=== PATIENT | male | born 1945 | race Caucasian/White ===

== ENCOUNTER → 2016-07-03 | Day surgery (SDC) | payer MEDICARE, OTHER ==
[~2016-07-03] VITALS: Ht 185.4 cm; Wt 134.2 kg
[~2016-07-03] MED LIST: ASPIRIN325 MG PO; AVODART0.5 MG PO; BENADRYL25 MG PO; DIOVAN320 MG PO; FLOMAX0.4 MG PO; GLUCOPHAGE850 MG PO; GLUCOSAMINE CH1 EAC3 PO; LEVOTHYROXINE50 MCG PO; LIPITOR80 MG PO; LOPRESSOR50 MG PO; NOVOLIN N100 UNIT/1 SUB-Q; NOVOLIN R100 UNIT/1 SUB-Q; NUCYNTA50 MG PO; VITAMIN B-122500 MCG PO; ZOCOR80 MG PO; ZYLOPRIM300 MG PO
--- NOTE | ~2016-07-03 | OR ---
PATIENT'S NAME: HAZEL GUY [facility] AGE: 71 Y [address] ROOM: [place] [address] LOCATION: [facility] [place] ADMIT DATE: 07/03/2016 OR/Procedure Report DISCHARGE DATE: FAMILY PHYSICIAN: Maximo Aguayo MD ATTENDING PHYSICIAN: Jose Solomon SURGEON: Jose Solomon MD AUTOMOBILE PAINTER: DATE OF PROCEDURE: 07/03/2016 PREOPERATIVE DIAGNOSES: 1. Gross hematuria. 2. Extensive bladder calcifications. 3. Urinary retention. 4. Massive left hydronephrosis with probable left distal ureteral calculus. POSTOPERATIVE DIAGNOSES: 1. Gross hematuria. 2. Extensive bladder calcifications. 3. Urinary retention. 4. Massive left hydronephrosis with probable left distal ureteral calculus. PROCEDURES PERFORMED: 1. Cystoscopy and retrograde. 2. Extensive litholapaxy. 3. Left ureteral stent placement. ANESTHESIA: General. INDICATION: This is a 71-year-old gentleman who had presented with gross hematuria. CT scan revealed multiple calcifications in the bladder. He was quite distended. The stones did not all layer at the base of the bladder. I had some concerns he may have a calcified bladder tumor. He also has massive left hydronephrosis. He has chronic renal insufficiency. Some of that may be obstructive in nature. He also has insulin-dependent diabetes. He presents at this time for further evaluation and intervention. DESCRIPTION OF PROCEDURE: Having obtained his informed consent, the patient was taken to the operating room. He was prepped and draped sterilely and in lithotomy position. General anesthesia was administered. A 21-Omani cystoscope was assembled and guided into the urethra. The course of the urethra was unremarkable back to the prostate. He has a high middle lobe. We have to look way up and over it. It obscures the orifices a bit. What we find is a chronically distended bladder with cellule and diverticula formation. All those stones that we saw are not related to a calcified mass. They were sitting in various pockets in the bladder. He has 2 to 3 dominant PATIENT'S NAME: HAZEL GUY [facility] AGE: 71 Y [address] ROOM: [place] [address] LOCATION: [facility] [place] ADMIT DATE: 07/03/2016 OR/Procedure Report DISCHARGE DATE: FAMILY PHYSICIAN: Maximo Aguayo MD ATTENDING PHYSICIAN: Jose Solomon stones and a multitude of 2 to 4 mm stones. Bladder examination was confirmed with 70-degree lens. Under fluoroscopy, the bowel gas pattern and soft tissue outlines were unremarkable. The calcifications are difficult to appreciate. Some of that may be related to his morbid obesity. They may also be poorly calcified. Contrast was instilled on the right side. The ureter J hooks from his prostatic hypertrophy. Otherwise, there are no filling defects. The ureter was narrow. The calyces were finely cupped. There was no mass effect. The left side was a different story. He is massively dilated to the distal ureter. I cannot get much contrast up. I then began working with the wire. He appears to have obstruction there consistent with a probable distal stone. I suspect he has been chronically obstructed. Once we get an angled guidewire up, I can get more contrast in the system. He has a very serpiginous and tortuous ureter. He is massively dilated all the way up into the collecting system. Getting a wire all the way to the top is aided with an open-ended catheter over the wire. We did some manipulation to get some of the tortuosity to straighten up. Ultimately, I did get the wire into the collecting system and I passed a 6 x 30 double-J stent over that guidewire. We will leave that to drainage and allow for some passive dilation at the area of the obstruction. We could then see if it is something that we can attack ureteroscopically. Obviously, if the kidney does not appear to drain well, we may leave it alone or remove that left-sided unit. With the stent in position, I then used the CyberWand and completely pulverized and evacuated all of the multitude of stones. At the conclusion, we have him stone free. My plan is to leave a catheter to drainage. We will get a followup ultrasound. We will then make a decision on how to address the left hydronephrosis. He may need urodynamic testing. I suspect he may need to consider a self-intermittent catheterization. I am also going to start him on dutasteride for the hypertrophy component to his chronic retention. Again, there may be a neurogenic component from his insulin dependent diabetes. A 20-Omani Larkin catheter was placed. The output is clear. The patient tolerated the procedure well. Blood loss was negligible. No specimens were sent. The patient returned to the recovery in awake and stable condition. JOSE SOLOMON MD PATIENT'S NAME: HAZEL GUY [facility] AGE: 71 Y [address] ROOM: [place] [address] LOCATION: [facility] [place] ADMIT DATE: 07/03/2016 OR/Procedure Report DISCHARGE DATE: FAMILY PHYSICIAN: Maximo Aguayo MD ATTENDING PHYSICIAN: Jose Solomon [facility]/modl /[id number] CC: Maximo Aguayo MD d: 07/03/16 2203 t: 07/04/16 0951, OPERATIVE SUMMARY
== END | disposition disaster alternative care site (69) ==
LOC: GPOC 06-28 08:00 → GSDC 10:57
PROC: 0TCB8ZZ Extirpation of Matter from Bladder, Via Natural or Artificial Opening Endoscopic (ICD-10-PCS; principal; 2016-07-03)
PROC: 0T778DZ Dilation of Left Ureter with Intraluminal Device, Via Natural or Artificial Opening Endoscopic (ICD-10-PCS; 2016-07-03)
DX: N21.0 Calculus in bladder (principal); N13.30 Unspecified hydronephrosis; N32.89 Other specified disorders of bladder; R33.9 Retention of urine, unspecified; I25.10 Atherosclerotic heart disease of native coronary artery without angina pectoris; I48.91 Unspecified atrial fibrillation; I10 Essential (primary) hypertension; E78.5 Hyperlipidemia, unspecified; E03.9 Hypothyroidism, unspecified; E10.9 Type 1 diabetes mellitus without complications; M19.90 Unspecified osteoarthritis, unspecified site; Z88.0 Allergy status to penicillin; Z88.8 Allergy status to other drugs, medicaments and biological substances; Z79.84 Long term (current) use of oral hypoglycemic drugs; Z79.82 Long term (current) use of aspirin; Z79.899 Other long term (current) drug therapy
CPT/HCPCS: C1769; C2617; J1956; J2001; J2405; J7030

== ENCOUNTER → 2016-07-31 | Outpatient (CLI) | payer MEDICARE, OTHER | END | disposition disaster alternative care site (69) | LOC: GRAD 08:13 | DX: R31.0 Gross hematuria (principal); N13.30 Unspecified hydronephrosis ==

== ENCOUNTER → 2016-08-14 | Outpatient (CLI) | payer MEDICARE, OTHER | END | disposition disaster alternative care site (69) | LOC: GRAD 08:32 | DX: N13.30 Unspecified hydronephrosis (principal); N13.4 Hydroureter ==

== ENCOUNTER → 2016-08-16 | Day surgery (SDC) | payer MEDICARE, OTHER ==
[~2016-08-16] VITALS: Ht 185.4 cm; Wt 131.0 kg
--- NOTE | ~2016-08-16 | OR ---
PATIENT'S NAME: HAZEL GUY [facility] AGE: 71 Y [address] ROOM: [place] [address] [place] [facility] [place] DATE: 08/16/2016 OR/Procedure Report DISCHARGE DATE: FAMILY PHYSICIAN: Maximo Aguayo MD ATTENDING PHYSICIAN: Jose Solomon SURGEON: Jose Solomon MD LOAN OPERATIONS SPECIALIST: DATE OF PROCEDURE: 08/16/2016 PREOPERATIVE DIAGNOSES: 1. Massive left hydronephrosis. 2. Marked benign prostatic hypertrophy with retention and bladder stone formation. 3. Urinary retention. 4. History of gross hematuria. 5. Chronic renal insufficiency - multifactorial. POSTOPERATIVE DIAGNOSES: 1. Massive left hydronephrosis. 2. Marked benign prostatic hypertrophy with retention and bladder stone formation. 3. Urinary retention. 4. History of gross hematuria. 5. Chronic renal insufficiency - multifactorial. 6. Large left distal ureteral calculus. PROCEDURES PERFORMED: 1. Cystoscopy and retrograde. 2. Left ureteroscopy with laser lithotripsy and multiple extractions. 3. Left ureteral stent placement. ANESTHESIA: General. INDICATIONS: This is a 71-year-old gentleman who had presented in June of this year with the above-noted findings. He had initially undergone cystoscopy and retrograde with removal of his bladder stones and left stent placement. He did well from a symptomatic standpoint. He has not had any further hematuria. He was started on a 3-vxcjp-csdiyehnf inhibitor in the form of dutasteride. He is still retaining significantly. Residual this week was 982 mL. He was initially left to catheter drainage with a stent indwelling. Followup ultrasound revealed an unremarkable right side. The left side revealed mild residual hydronephrosis, but there was obviously a reservoir effect. He was seen back recently with a followup ultrasound. The left hydronephrosis was progressive without the stent. It was felt to be worse after his interim study. He presents at this time for further PATIENT'S NAME: HAZEL GUY [facility] AGE: 71 Y [address] ROOM: [place] [address] [place] [facility] [place] DATE: 08/16/2016 OR/Procedure Report DISCHARGE DATE: FAMILY PHYSICIAN: Maximo Aguayo MD ATTENDING PHYSICIAN: Jose Solomon evaluation of the left distal ureteral obstruction. I would note that he had a CT scan. There was no obvious ureteral stone, but his bladder was enlarged and full of stones, and it was difficult to comment as to whether any of the stones were within the bladder or in the left ureter. We had removed all the bladder stones. No obvious stone was identified on the followup ultrasound. DESCRIPTION OF PROCEDURE: Having obtained his informed consent, the patient was taken to the operating room. He was prepped and draped sterilely and in lithotomy position. General anesthesia was administered. A 21-Taiwanese cystoscope was assembled and guided into the urethra. The course of the urethra was unremarkable back to prostatic urethra which is elongated and obstructed by trilobar hypertrophy. Moving into the bladder, we had much better visualization having gotten the stones and stent out. The bladder is capacious, but there were no mucosal lesions. He does have some small residual bladder calcifications after the extensive litholapaxy. Bladder examination was confirmed with a 70-degree lens. Under preliminary survey, bowel gas pattern and soft tissue outlines were unremarkable. Contrast was instilled on the right side. He has marked J- hooking from his prostatic hypertrophy, but there is no significant dilation nor is there any evidence of obstruction or filling defect. Contrast was injected on the left side. He has a massively dilated ureter right down to the bladder. No obvious stones or filling defects were appreciated. However, it is difficult to get enough volume in the collecting system to adequately outline it. My working assumption is that this is a chronic and unilateral hydroureteronephrosis. If that were from obstruction, we would anticipate seeing it bilaterally. He has not had any pain or symptoms relative to it. He does have the chronic renal insufficiency, but it is multifactorial with his vascular disease, insulin-dependent diabetes, etc. To complete the evaluation, I proceeded with cystoscopy. I passed a guidewire up the left side. I followed that with a semi-rigid scope. We find the issue. He has an approximately 1 cm stone in the markedly dilated distal ureter. It is too large to safely remove without breaking it up. A 600 micron laser fiber was prepared and passed. At a maximum setting of 800 mJ and 6 hertz, I completely fragmented the stone. The larger pieces were then extracted individually with a basket. Those were PATIENT'S NAME: HAZEL GUY [facility] AGE: 71 Y [address] ROOM: [place], [place] [address] [place] [facility] [place] DATE: 08/16/2016 OR/Procedure Report DISCHARGE DATE: FAMILY PHYSICIAN: Maximo Aguayo MD ATTENDING PHYSICIAN: Jose Solomon sent for analysis. With the marked dilation and diminished peristalsis, with the residual fragments and dust and the massive dilation, I opted to replace his stent. My safety wire was back loaded into the cystoscope. Over that, I passed a 6 x 30 contour stent. We have a nice level of placement cystoscopically and fluoroscopically. The patient tolerated the procedure well. Blood loss was negligible. The extracted fragments were sent for specimen and stone analysis. The patient was returned to the recovery area, awake and in stable condition. JOSE SOLOMON MD [facility]/modl /[id number] CC: Maximo Aguayo MD d: 08/16/16 2118 t: 08/25/16 1520, OPERATIVE SUMMARY
--- NOTE | ~2016-08-16 | HP ---
PATIENT'S NAME: BREEZY GUY [facility] AGE: 71 Y [address] ROOM: [place] [address] LOCATION: [facility] [place] ADMIT DATE: 08/16/2016 History & Physical DISCHARGE DATE: FAMILY PHYSICIAN: Maximo Aguayo MD ATTENDING PHYSICIAN: Jose Solomon DATE OF SERVICE: CHIEF COMPLAINT: Left hydronephrosis. HISTORY OF PRESENT ILLNESS: This is a 71-year-old gentleman evaluated approximately 6 weeks ago with gross hematuria, bladder stones, urinary retention, and massive left hydronephrosis. He underwent cystoscopy with retrograde and left stent placement in addition to extensive litholapaxy. He has done well in the interim. In fact, he tells me he feels well. We had removed his stent on July 31, 2016. He has some renal insufficiency, but his function has remained stable. However, his left hydronephrosis persists, and we do not have an absolute etiology at this point. He has known retention. In fact, his residual at the office on 08/14/2016 was 982 mL. He is asymptomatic with that. His retention may be a contributor, but his right kidney is felt to be normal. He had an ultrasound on 07/31/2016 which demonstrated mild hydronephrosis after his stenting. He had a followup ultrasound yesterday. The preliminary report was that it had not changed significantly. However, on the official report, Dr. Carcamo noted "moderate hydronephrosis today, has worsened since the prior study." The ureters dilated down to the bladder. He had a prior CT scan. There was no obvious obstructing stone. He presents at this time for cystoscopy with retrogrades and possible left ureteroscopy. Otherwise, he has been feeling quite well. In spite of his residuals, he feels like he is voiding better. He is now on 4-dvamx-jdrnpexiv inhibitor in the form of dutasteride. Interestingly, he also tells me his insulin requirements have decreased significantly since our intervention. PAST MEDICAL HISTORY: In addition to the above, he has morbid obesity. He is 6 feet 1 inch and weighing in at 288 pounds, that is down from 311 pounds earlier this year. That may be responsible for some of his improved sugar control. He has a history of coronary artery disease and is status post stent. He is hypothyroid, hypertensive, insulin-dependent diabetic, and he has a history of atrial fibrillation. In addition to the above, he has had bilateral hernia repairs as well as orthopedic procedures and his cardiac intervention. PATIENT'S NAME: BREEZY GUY [facility] AGE: 71 Y [address] ROOM: [place] [address] LOCATION: [facility] [place] ADMIT DATE: 08/16/2016 History & Physical DISCHARGE DATE: FAMILY PHYSICIAN: Maximo Aguayo MD ATTENDING PHYSICIAN: Jose Solomon MEDICATIONS: 1. Zocor. 2. Zinc. 3. Synthroid. 4. Metoprolol. 5. Metformin. 6. Glucosamine. 7. Benadryl at h.s. 8. Valsartan. 9. Novolin insulin. 10. Efudex cream. 11. Sildenafil p.r.n. 12. Aspirin. 13. Dutasteride. 14. He has been on Keflex. ALLERGIES: HE HAS MULTIPLE LISTED ALLERGIES INCLUDING DEMEROL, CODEINE, PENICILLIN, HYDROCODONE, MORPHINE, DILAUDID, CHICKEN, AND EGGS. HE ALSO LISTS AN ALLERGY TO ANESTHESIA. BY HISTORY, HE HAS HAD PRIOR ANESTHESIA WHERE IT HAS TAKEN HIM A LONG TIME TO COME AROUND. SOCIAL HISTORY: He continues to work for the [employer]. He has a significant other. He also has a son who accompanies him. He has good family support. He does not drink or smoke. REVIEW OF SYSTEMS: He has no significant pertinent positives on full review. FAMILY HISTORY: Noncontributory. PHYSICAL EXAMINATION: GENERAL: Breezy appears his usual self. VITAL SIGNS: Blood pressure 154/79 with pulse of 66. He is 6 feet 1 inch and 288 pounds. HEART: Currently, regular. LUNGS: Clear. ABDOMEN: Remarkable for obesity. GENITOURINARY: Repeated at cystoscopy. EXTREMITIES: No clubbing, cyanosis, or edema. IMPRESSION: PATIENT'S NAME: BREEZY GUY [facility] AGE: 71 Y [address] ROOM: [place] [address] LOCATION: [facility] [place] ADMIT DATE: 08/16/2016 History & Physical DISCHARGE DATE: FAMILY PHYSICIAN: Maximo Aguayo MD ATTENDING PHYSICIAN: Jose Solomon 1. Persistent left hydronephrosis of uncertain etiology. 2. Gross hematuria with bladder stones-resolved. 3. Marked benign prostatic hypertrophy, now on 7-sbjic-sdvtmjqqk therapy. 4. Chronic renal insufficiency-multifactorial. 5. Urinary retention. 6. Coronary artery disease. 7. Insulin-dependent diabetes. PLAN: Cystoscopy with retrograde and probable left ureteroscopy with possible stent replacement. The patient understands the plan as well as the attendant risks and benefits. He has had his questions answered, and he wishes to proceed. JOSE SOLOMON MD [facility]/modl /[id number] CC: Maximo Aguayo MD D: [id number] T: [id number] HISTORY & PHYSICAL
[2016-08-16 07:01] LABS: BASOPHIL % 0.4 %; EOSINOPHIL # 0.1 K/uL (0.0-0.5); HEMATOCRIT 36.9 % (37.0-53.0); HEMOGLOBIN 11.8 g/dL (11.0-16.0); IMMATURE GRANULOCYTE % 0.4 %; LYMPHOCYTE # 1.3 K/uL (0.8-4.0); LYMPHOCYTE % 23.5 %; MCH 27.6 pg (27.0-34.0); MCV 86.2 fl (83.0-98.0); MONOCYTE # 0.5 K/uL (0.0-1.0); MONOCYTE % 8.5 %; NEUTROPHIL # (ANC) 3.5 K/uL (1.4-9.0); NEUTROPHIL % 65.2 %; NRBC % 0 /100WBC (0-0.00); PLATELET COUNT 165 K/uL (150-450); RBC 4.28 M/uL (3.50-5.50); RDW-CV 15.1 % (11.9-14.6); WBC 5.4 K/uL (4.0-11.0)
[2016-08-16 07:18] LABS: ALBUMIN 3.6 gm/dL (3.5-5.0); ANION GAP 10.5 (10.0-19.0); CALCIUM 8.4 mg/dL (8.5-10.5); CREATININE 1.3 mg/dL (0.6-1.3); POTASSIUM 4.5 mMol/L (3.7-5.1); TOTAL BILIRUBIN 0.5 mg/dL (0.0-1.5)
== END | disposition disaster alternative care site (69) ==
LOC: GPOC 08-15 13:00 → GSDC 06:12
PROVIDERS: Urology
PROC: 0TF78ZZ Fragmentation in Left Ureter, Via Natural or Artificial Opening Endoscopic (ICD-10-PCS; principal; 2016-08-16)
PROC: 0T778DZ Dilation of Left Ureter with Intraluminal Device, Via Natural or Artificial Opening Endoscopic (ICD-10-PCS; 2016-08-16)
DX: N13.2 Hydronephrosis with renal and ureteral calculous obstruction (principal); N40.1 Benign prostatic hyperplasia with lower urinary tract symptoms; R33.8 Other retention of urine; N18.9 Chronic kidney disease, unspecified; I25.10 Atherosclerotic heart disease of native coronary artery without angina pectoris; I48.91 Unspecified atrial fibrillation; E10.9 Type 1 diabetes mellitus without complications; E66.01 Morbid (severe) obesity due to excess calories; Z88.0 Allergy status to penicillin; Z88.8 Allergy status to other drugs, medicaments and biological substances
CPT/HCPCS: C1769; C2617; J1956; J7030

== ENCOUNTER 2016-11-16 13:19 | Inpatient (IN) | payer MEDICARE, OTHER ==
[~2016-11-16] VITALS: Ht 185.4 cm; Wt 133.4 kg
--- NOTE | ~2016-11-16 | DS ---
PATIENT'S NAME: HAZEL GUY [facility] AGE: 71 Y [address] ROOM: [id number] [place] [address] LOCATION: [facility] ADMIT DATE: 11/16/2016 Discharge Summary DISCHARGE DATE: 11/17/2016 FAMILY PHYSICIAN: Maximo Aguayo MD ATTENDING PHYSICIAN: Yumiko Martinez ADMITTING DIAGNOSIS: Cerebrovascular accident. DISCHARGE DIAGNOSIS: Cerebrovascular accident. SECONDARY DIAGNOSES: 1. Hypertension. 2. Diabetes mellitus type 2. 3. History of coronary artery disease. 4. Obesity. PROCEDURES: MRI brain, echocardiogram, CTA of neck and head. CONSULTATION: Neurology. 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 The patient was initially seen in the emergency department. Initial CT head was negative. The patient was admitted for TIA workup. HOSPITAL COURSE: The patient was admitted. His neurological examination was intact. His upper extremity weakness resolved. MRI of the brain shows small area of acute white matter ischemia at the left parietal lobe measuring up to [address] angio shows mild tubular stenosis involving the proximal left ICA measuring up to approximately 40%. The patient was admitted. His simvastatin was changed to Lipitor. The patient was also seen by Neurology during his stay. His neurological examination was intact and was back to normal. No signs of weakness. The patient's echocardiogram was unremarkable. Echocardiogram was done with bubble study. During his stay, he was placed on tele monitor, in tele monitor it was normal sinus rhythm. The patient during stay was able to walk around the hospital with no difficulty or ataxia and his neurological examination was back to normal. The patient was discharged in stable condition to home. CONDITION: Stable. DISPOSITION: Home. PATIENT'S NAME: HAZEL GUY [facility] AGE: 71 Y [address] ROOM: [id number] [place], [place] [address] LOCATION: [facility] ADMIT DATE: 11/16/2016 Discharge Summary DISCHARGE DATE: 11/17/2016 FAMILY PHYSICIAN: Maximo Aguayo MD ATTENDING PHYSICIAN: Yumiko Martinez DISCHARGE MEDICATION: Please see MAR. DISCHARGE INSTRUCTION: The patient have weakness, sensory change and vision change to report to the next emergency department. FOLLOWUP: To follow up with primary care physician in 1 week. Greater than 30 minutes was spent on discharge planning. MD BRIT TAYLOR/iona /[id number] d: 11/17/16 2333 t: 11/27/16 1059, DISCHARGE SUMMARY
--- NOTE | ~2016-11-16 | CON ---
PATIENT'S NAME: HAZEL ESTEBAN [facility] AGE: 71 Y [address] ROOM: [id number] [address] LOCATION: GICU ADMIT DATE: 11/16/2016 Consultation DISCHARGE DATE: FAMILY PHYSICIAN: Maximo Aguayo MD ATTENDING PHYSICIAN: JUNIOR SCOTT DATE OF CONSULTATION: 11/16/2016 The patient was seen on neurologic consultation at 10:40 p.m. on 11/16/2016. HISTORY OF PRESENT ILLNESS: Mr. Esteban is a delightful 71-year-old male patient, who has a history of diabetes, insulin dependent, and also a history of hypertension. He says that he was in his usual state of health and he was showing a house that he was working on when suddenly he developed full right arm weakness. This was not relegated to his hand and was not associated with any pain in the arm or in the neck. Just around that time, he also developed a visual phenomenon in his right eye which he said caused him to see an arc-like phenomena around the middle portion of his right eye as well as scintillating type of flashing in the right eye. He absolutely denied any scotoma or any other loss of vision in the right eye such as a curtaining effect. He had no neck pain at that time and no neck injury. The patient did come to our emergency room at that time. By the time, he had arrived here, he was assessed by the NIH stroke scale and there was really no weakness of the right upper extremity. It did completely resolve. The patient denies that he was putting pressure on the arm, leaning on it, and falling asleep on his own. Power is completely back to his baseline, and there is absolutely no pronator drift or any focal weakness that was seen in emergency room nor this evening. The patient denied any headaches at all during the day. Again, a CAT scan of the brain was performed and showed no evidence of any acute stroke. However, an MRI was performed later in the day and showed a very small little area on diffusion- weighted imaging, the left parietal region may or may not be associated with a stroke. This was a very faded area on DWI, representing something in the distant past. The patient at no time had any slurring of speech, facial droop, or any weakness or numbness to his arm or leg. He was like he was doing fine. He denies any sweatiness or lightheadedness at any time. His vital signs remained stable. PAST MEDICAL HISTORY: He has a history of diabetes, hypertension, and orthopedics surgeries in the bilateral knees that had to be done without anesthesia as he has extensive amounts of allergic reactions to medications including anesthetics. He does have a history of hypercholesterolemia. He has a history of obesity. He is on oral medications for his diabetes, including metformin as well as a long- acting normal insulin. He takes regularly scheduled regular dosing insulin PATIENT'S NAME: HAZEL ESTEBAN [facility] AGE: 71 Y [address] [id number] [address] LOCATION: [facility] ADMIT DATE: 11/16/2016 Consultation DISCHARGE DATE: FAMILY PHYSICIAN: Maximo Aguayo MD ATTENDING PHYSICIAN: JUNIOR SCOTT that is fixed at the times of his meals. During the evenings, he reports a few times that he becomes hypoglycemic with blood sugars going into the 50s if not 30s at some points in time. He says he knows when his blood sugar goes down, but this is not associated with any blood sugar drop today. Also, history of hypothyroidism and history of chronic back pain. Also, history of varicose veins with lower extremity vein stripping to relieve osteoarthritis. PAST SURGICAL HISTORY: Included cardiac stents and varicose vein stripping, hernia repair inguinal, and left elbow bursa surgery. MEDICATIONS: Home medications include: 1. Zocor 80 mg half a tablet daily. 2. Zinc gluconate 50 mg twice a day. 3. Synthroid 50 mcg daily. 4. Potassium gluconate 595 mg twice a day. 5. Metoprolol 50 mg twice a day. 6. Metformin 850 mg 3 times a day. 7. Valsartan 320 mg daily. 8. Novolin-R 30 units in the a.m., 20 units in the p.m., 12 units at noon. In fact, noted that this is taken with meals, but the patient says that these are taken with meals. 9. Myrbetriq 25 mg as needed. 10. Viagra 100 mg as needed. 11. Aspirin 325 mg tablets two tablets twice a day which he uses for back pain. 12. Novolin-N 50 units q.a.m. and 20 units q.p.m. SOCIAL HISTORY: He is engaged. Apparently, his prior 2 years ago. He is from [place], and he is currently building a house with his fiancee and to be soon. He denies any alcohol use or tobacco use or illicit drug use. 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 FAMILY HISTORY: Noncontributory. REVIEW OF SYSTEMS: The patient presented with a positive phenomena with a visual obscuration, but not loss of vision in the right eye. He says it was relegated only to his right eye. This happened in the setting of a sudden onset of right arm weakness that he said he could not elevate his arm and his forearm and hand. There was absolutely no weakness of his legs. No sensory numbness of his PATIENT'S NAME: HAZEL ESTEBAN [facility] AGE: 71 Y [address] ROOM: [place] [address] LOCATION: [facility] ADMIT DATE: 11/16/2016 Consultation DISCHARGE DATE: FAMILY PHYSICIAN: Maximo Aguayo MD ATTENDING PHYSICIAN: JUNIOR SCOTT right side. He denies any slurring of speech. He denied any facial droop or any other neurologic symptoms. These symptoms resolved upon the patient arriving at the emergency room. Here, the NIH stroke scale was rated as zero as the patient would not have been a candidate for tPA. PHYSICAL EXAMINATION: VITAL SIGNS: Showed a pulse of 77 and regular, respirations 18, blood pressure 160/79, temperature 97.3. NEUROLOGIC: Cranial nerves 2 through 12 were intact. His motor exam was normal with 5/5 power in the upper and lower extremities proximally and distally. Rapid alternating hand movement was completely intact. There was absolutely no pronator drift. There was no difference between the right and left arm on [id number] and rapid fine motor movements. His lower extremity power was also 5/5 and normal bulk and tone. His gait was normal and narrow based. Negative Romberg. Reflexes were symmetric at +2 in the upper and lower extremities with plantar reflexes downgoing. Sensory exam was completely intact. IMPRESSION: The patient had an odd presentation of sudden onset of right arm weakness in the setting of some odd visual phenomena in the right eye. It is unclear if it was relegated to the right eye only, but other phenomena does suggest a visual aura as opposed to loss of vision which would be associated in certain situations such as amaurosis fugax. I simply cannot connect the right eye process to the right arm weakness. These are unrelated to the brain as far as I could see. It is quite rare, but persons can have a visual aura with hemiplegic migraine without even a headache and without even a history of this. He denies any history of sudden weakness as often this would be seen at some time younger in life. The MRI finding of a very small 5 mm diffusion- weighted signal is obscured to me. It is in the parietal region and really would not be associated with a motor weakness of the right arm. I do not think that it would be associated at all with visual obscuration in that location either. The connection to the MRI finding, again which is a bit subtle and maybe something unrelated, the patient's symptoms today are unclear. We will monitor the patient closely overnight for any evidence of atrial fibrillation, but it is certainly odd that if a finding on MRI was present that he would have a complete recovery of his power in the right upper extremity. I would assume that he would have some subtle weakness even in the slightest, but he does not have that presently. Thus, a hemiplegic migraine is certainly not out of the question, especially with the visual aura type of presentation that he seems to describe. We will follow along on the patient's carotid study. We would necessarily change his cholesterol medication. He seems to be well controlled with his cholesterol profile. Hemoglobin A1c was 8.2, which could be better, but the patient does say that this is much improved from his past history. Continue to follow along with the Hospitalist PATIENT'S NAME: HAZEL ESTEBAN [facility] AGE: 71 Y [address] [id number] [address] LOCATION: [facility] ADMIT DATE: 11/16/2016 Consultation DISCHARGE DATE: FAMILY PHYSICIAN: Maximo Aguayo MD ATTENDING PHYSICIAN: JUNIOR SCOTT Service on Mr. Esteban's neurologic status. MD MAYELA GUTIÉRREZ/modl /[id number] d: 11/17/16 0034 t: 12/19/16 1529, CONSULTATION REPORT
--- NOTE | ~2016-11-16 | ER ---
PATIENT'S NAME: HAZEL GUY [facility] AGE: 71 Y [address] ROOM: [address] [address] LOCATION: [facility] ADMIT DATE: 11/16/2016 ER/Outpatient Report DISCHARGE DATE: FAMILY PHYSICIAN: Maximo Aguayo MD ATTENDING PHYSICIAN: JUNIOR MARTINEZ Time of Arrival: 1319 hours. Time Seen: 1330 hours. IDENTIFICATION: A 71-year-old male. CHIEF COMPLAINT: Weakness. HISTORY OF PRESENT ILLNESS: The patient is a 71-year-old male who 30 minutes prior to arrival noticed that his right arm was weak, started as flaccid, but it has been improving. He ran an errand, then came to the ER. He has no headache. He had a little rainbow crescent-shaped abnormality in the right visual field, that has completely resolved. No headache, this has never happened before. He does have diabetes. He did not feel that his blood sugar was low, did not check his blood sugar at that time. ALLERGIES: TO PENICILLIN, MORPHINE, CODEINE, DEMEROL, CHICKEN, AND ANESTHESIA. CURRENT MEDICATIONS: He did not have a medication list with him at the time of arrival. We did obtain a medication list from [facility] [place], which include: 1. Zocor 80 mg half tablet daily. 2. Zinc gluconate 50 mg b.i.d. 3. Synthroid 50 mcg daily. 4. Potassium gluconate 595 mg b.i.d. 5. Metoprolol tartrate 50 mg b.i.d. 6. Metformin 850 mg t.i.d. 7. Glucosamine chondroitin complex half tablet daily. 8. Benadryl 25 mg 2 at h.s. 9. Valsartan 320 mg daily. 10. Novolin R 30 units q.a.m., 20 units q.p.m., and 12 units q.noon. 11. Efudex cream b.i.d. to scalp. 12. Myrbetriq 25 mg as needed. 13. Viagra 100 mg as needed. 14. Aspirin 325 mg 2 tablets 2 times daily. PATIENT'S NAME: HAZEL GUY [facility] AGE: 71 Y [address] ROOM: [id number] [place], [place] [address] LOCATION: [facility] ADMIT DATE: 11/16/2016 ER/Outpatient Report DISCHARGE DATE: FAMILY PHYSICIAN: Maximo Aguayo MD ATTENDING PHYSICIAN: JUNIOR MARTINEZ 15. Novolin N 50 units q.a.m. and 20 units q.p.m. 16. B complex 2 tablets daily. 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 PRIOR SURGERIES: Knee surgery, cardiac stents, varicose vein surgery, hernia repair, and left elbow bursa surgery. SOCIAL HISTORY: The patient is engaged. He is from [place], but he is building a house with his fiancee here in [place]. He is getting in a couple of weeks. Tobacco use, denies. Alcohol use, denies. Drug use, denies. 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 FAMILY HISTORY: No pertinent family history identified. REVIEW OF SYSTEMS: All systems reviewed and negative other than what is noted in the HPI. PHYSICAL EXAMINATION: VITAL SIGNS: Height 6 feet 1 inch, weight 136.4 kg. Blood pressure 160/79, pulse 77, respirations 18, temperature 97.3, and saturations 98% on room air. GENERAL: A 71-year-old male, in no acute distress. HEENT: Head: Normocephalic, atraumatic. Ears: TMs translucent, both ears. Eyes: Pupils equal and reactive to light and accommodation. Extraocular movements intact. Conjunctivae clear. Visual lyle are normal. Visual acuity grossly normal. Nose: Mucosa pink. No lesions. Mouth: No lesions. Pharynx benign. NECK: Supple. No lymphadenopathy. No thyromegaly. No carotid bruits. No JVD. LUNGS: Clear to auscultation. HEART: Regular rate and rhythm. ABDOMEN: Bowel sounds present. Soft, nondistended, nontender. SKIN: [place], warm, and dry. No lesions or rashes noted. NEURO: The patient is alert and oriented x4. Cranial nerves 2 through 12 grossly intact. Motor strength 5/5 throughout. Sensation is intact to light touch. The patient maybe has a little minimal weakness to right upper extremity against resistance. He says it does not feel quite back to normal. PATIENT'S NAME: HAZEL GUY [facility] AGE: 71 Y [address] ROOM: [id number] [place] [address] LOCATION: [facility] ADMIT DATE: 11/16/2016 ER/Outpatient Report DISCHARGE DATE: FAMILY PHYSICIAN: Maximo Aguayo MD ATTENDING PHYSICIAN: JUNIOR MARTINEZ He has no drift, but maybe there is a slight weakness compared to the left. No lower extremity edema. LABORATORY DATA: Hemoglobin 12.8, hematocrit 38.9, platelets 164, white count 7.1 with a normal differential. INR 0.96. Troponin I less than 0.040. Renal panel normal. Blood sugar 75. EKG: Sinus rhythm at 75 beats per minute. No acute ST elevation or depression. No prior EKG available for comparison. NIH stroke scale score is 0. Head CT without contrast, normal for age per Dr. Gentile, radiologist. IMPRESSION AND PLAN: 1. Transient ischemic attack. Plan: Admit per Dr. Martinez with Neurology consultation. I did speak with Dr. Moise, and his symptoms are almost completely resolved and NIH stroke scale score is 0. He is not a candidate for tPA at this time. 2. Diabetes mellitus, insulin requiring. 3. Hypertension. 4. Coronary artery disease. 5. History of atrial fibrillation, currently in sinus rhythm. VALERIE BIRD MD CAR/modl /[id number] d: 11/16/16 180 t: 11/17/16 1735, OUTPATIENT REPORT
--- NOTE | ~2016-11-16 | ECHO ---
Transthoracic Echocardiography Report (TTE) Demographics Patient Name HAZEL GUY Date of Study 11/17/2016 Patient Number [id number] Visit Number [id number] Date of 1945 Room Number [id number] Accession Number [id number] Gender Male Age 71 year(s) Referring Dede Bradshaw Boss Dyer Josh Painting RVT Physician Michelle Calhoun MD Physician Interpreting [place] Figure Skater Physician Delilah KRUEGER Supervising Ordering Physician Michelle Calhoun MD/MLP Nurse Stress Code Enforcement Officer Conclusions Contractility Score Summary Normal Left Ventricular contractility was noted. Summary Normal LV/RV size and systolic funciton. The estimated left ventricular ejection fraction is 60-65%. Mild concentric left ventricular hypertrophy. Diastolic assessment reveals Grade II pseudonormal diastolic function . The left atrium is moderately dilated by LA volume index measurement. The right atrium is mildly dilated. Negative bubble study. Mild mitral regurgitation by color Doppler. Procedure Type of Study TTE procedure:Echo with Contrast. Procedure Date Date: 11/17/2016 Start: 11:57 AM Study Location: Inpatient Portable Technical Quality: Adequate visualization Indications:CVA. Appropriate Use Criteria: 9 Patient Status: Routine HR: 58 bpm BP: 144/61 mmHg M-Mode/2D Measurements LV Diastolic Dimension: 4.84 cm LV Systolic Dimension: 3.28 cm LV Septum Diastolic: 1.28 cm LV PW Diastolic: 1.22 cm AO Root Dimension: 2.8 cm Cardiac Output: 3.3 l/min AV Cusp Separation: 1.7 cm RV Diastolic Dimension: 2.96 cm LA volume: 97 ml LVOT: 2 cm RV Base: 2.51 cm LVOT VTI: 18.1 cm RV Mid: 2.92 cm LV Stroke volume: 56.83 ml TAPSE: 2.42 cm TDI-S': 14.7 cm/s Doppler Measurements AV Peak Velocity: 1.29 m/s MV Peak E-Wave: 0.91 m/s AV Peak Gradient: 6.66 mmHg MV Peak A-Wave: 0.68 m/s AV Mean Gradient: 4 mmHg MV E/A Ratio: 1.33 LVOT Peak Velocity: 0.84 m/s MV P1/2t: 92 msec TR Gradient:20.79 mmHg PV Peak Velocity: 0.93 m/s PV Peak Gradient: 3.49 mmHg E' Septal Velocity: 0.04 m/s A' Septal Velocity: 0.16 m/s E' Lateral Velocity: 0.07 m/s A' Lateral Velocity: 0.1 m/s Findings Left Ventricle Mild concentric left ventricular hypertrophy. Diastolic assessment reveals Grade II pseudonormal diastolic function . Right Ventricle Normal right ventricle structure and function. Left Atrium The left atrium is moderately dilated by LA volume index measurement. Right Atrium The right atrium is mildly dilated. Negative bubble study. IVC is not well visualized. Mitral Valve Mild mitral regurgitation by color Doppler. Aortic Valve Normal aortic valve structure and function. Tricuspid Valve Trivial tricuspid regurgitation by color Doppler. IVC not well visualized, appears to measure 1.65 cm. Pulmonic Valve Normal pulmonic valve structure and function. Pericardial Effusion Epicardial fat pad noted. Miscellaneous Visualized portions of the aortic root and ascending aorta appear normal in size. Pleural Effusion No evidence of pleural effusion. Contractility Score LV regional wall motion:(0-Non visualized 1-Normal 2-Hypokinesis 3-Akinesis 4-Dyskinesis 5-Aneurysm) Signature dtt: DELILAH SWANSON dtd: 11/17/16 1157 Physician Self Edit
--- NOTE | ~2016-11-16 | HP ---
PATIENT'S NAME: BROOKSHAZEL [facility] AGE: 71 Y [address] ROOM: [place] [address] LOCATION: GICU ADMIT DATE: 11/16/2016 History & Physical DISCHARGE DATE: FAMILY PHYSICIAN: Maximo Aguayo MD ATTENDING PHYSICIAN: JUNIOR SCOTT DATE OF SERVICE: CHIEF COMPLAINT: Right hand weakness and right vision changes. HISTORY OF PRESENT ILLNESS: A 71-year-old, very pleasant gentleman who had a past medical history of hypertension; type 2 diabetes, insulin dependent; hyperlipidemia; obesity; and had a questionable history of coronary artery disease and a questionable history of atrial fibrillation, not on oral anticoagulation, presented to the emergency department today with a chief complaint of right hand weakness which started around 0130 hours this afternoon, when he was showing his new house to couple of people. He described that he was not able to lift his hand up because it was so weak and he also had some changes in his vision which he described as crescent and some supervisor scrap preparation on the crescent. On further inquiry, he stated he did not have any headache, but did feel some dizziness. He denied any chest pain, any shortness of breath, any palpitation, any abdominal pain, any burning on urination, constipation, diarrhea, PND, or any leg swelling. REVIEW OF SYSTEMS: All other systems reviewed and were negative except for what is mentioned in the HPI. PAST MEDICAL HISTORY: 1. Coronary artery disease many years ago and underwent a stent to one of the arteries which per him had only 40% blockage. 2. History of fast heart rate and mention of atrial fibrillation, on the medical records, but not on any oral anticoagulation and he is not aware of that. 3. Hypertension. 4. Dyslipidemia. 5. Type 2 diabetes, on 70/30 regimen. 6. Obstructive sleep apnea. SOCIAL HISTORY: Never a smoker. No alcohol or drug abuse. 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 PATIENT'S NAME: BROOKSHAZEL [facility] AGE: 71 Y [address] ROOM: [place] [address] LOCATION: GICU ADMIT DATE: 11/16/2016 History & Physical DISCHARGE DATE: FAMILY PHYSICIAN: Maximo Aguayo MD ATTENDING PHYSICIAN: JUNIOR SCOTT ALLERGIES: THE PATIENT HAS SEVERE ALLERGIES. ANAPHYLAXIS TO PENICILLIN WELL TO ANY OPIOID MEDICATIONS. FAMILY HISTORY: Significant for Parkinson's in mother, and esophageal cancer in father. PHYSICAL EXAMINATION: VITAL SIGNS: Blood pressure 178/68, 72, afebrile, and saturating 95% on room air. GENERAL: In no acute distress. Alert and oriented x3. HEENT: Head; atraumatic and normocephalic. Eyes; nonicteric. No pallor. Oropharynx; moist mucous membranes. CARDIOVASCULAR: S1 and S2. No murmurs, gallops, or rubs. LUNGS: Clear to auscultation bilaterally. ABDOMEN: Soft, nontender, nondistended. Bowel sounds present. EXTREMITIES: No clubbing, cyanosis, or edema. PSYCHIATRIC: Normal affect, mood, and speech. NEUROLOGIC: Cranial nerves 2 through 12 intact. No motor or sensory deficit. MUSCULOSKELETAL: No muscle tenderness or joint swelling noted. LABORATORY DATA AND IMAGING STUDIES: CAT scan was obtained in the emergency department which was negative. EKG, CBC, and CMP as well as initial troponin levels were all unremarkable. ASSESSMENT AND PLAN: 1. Transient ischemic attack. 2. History of hypertension. 3. Insulin-dependent diabetes mellitus. 4. History of coronary artery disease. 5. Questionable history of atrial fibrillation, not on any rhythm as well as any oral anticoagulation, but the patient does take 300 mg aspirin twice daily for his back pain. 6. Obstructive sleep apnea. 7. Morbid obesity. Plan: We are going to admit the patient for inpatient. We will work him up for the transient ischemic attack. We are going to get an MRI of the head and a CT angiography of the head and neck. Echocardiography will be done. Telemetry monitoring will be done. Lipid profile and HbA1c will be done. Neurology consultation has been made. Permissive hypertension will be allowed. We will hydrate given that he is going to get contrast. Bedside swallow study and PT and OT. Further management will depend on his course in the hospital. PATIENT'S NAME: HAZEL GUY [facility] AGE: 71 Y [address] ROOM: [place] [address] LOCATION: [facility] ADMIT DATE: 11/16/2016 History & Physical DISCHARGE DATE: FAMILY PHYSICIAN: Maximo Aguayo MD ATTENDING PHYSICIAN: JUNIOR SCOTT JUNIOR SCOTT MD RAGHAV/modl /[id number] D: [id number] T: [id number] HISTORY & PHYSICAL
[~2016-11-16 13:19] MED LIST changes: -LIPITOR80 MG PO; -ZYLOPRIM300 MG PO
[2016-11-16 14:17] LABS: BASOPHIL % 0.6 %; EOSINOPHIL # 0.1 K/uL (0.0-0.5); EOSINOPHIL % 1.7 %; HEMATOCRIT 38.9 % (37.0-53.0); HEMOGLOBIN 12.8 g/dL (11.0-16.0); IMMATURE GRANULOCYTE % 0.6 %; LYMPHOCYTE # 1.6 K/uL (0.8-4.0); LYMPHOCYTE % 22.4 %; MCH 28.8 pg (27.0-34.0); MCHC 32.9 gm/dL (32.0-36.5); MCV 87.6 fl (83.0-98.0); MONOCYTE # 0.6 K/uL (0.0-1.0); MONOCYTE % 8.8 %; MPV 10.2 fl (9.4-12.4); NEUTROPHIL # (ANC) 4.7 K/uL (1.4-9.0); NEUTROPHIL % 65.9 %; NRBC % 0 /100WBC (0-0.00); PLATELET COUNT 164 K/uL (150-450); RBC 4.44 M/uL (3.50-5.50); RDW-CV 15.1 % (11.9-14.6); WBC 7.1 K/uL (4.0-11.0)
[2016-11-16 14:28] LABS: INR - (THERAPEUTIC) 0.96 (0.92-1.07); PROTIME 10.1 SECONDS (9.8-11.4); PTT 31 SECONDS (25-32)
[2016-11-16 14:32] LABS: ALBUMIN 3.8 gm/dL (3.5-5.0); ANION GAP 12.1 (10.0-19.0); CALCIUM 8.9 mg/dL (8.5-10.5); CREATININE 1.3 mg/dL (0.6-1.3); PHOSPHORUS 3.3 mg/dL (2.5-4.9); POTASSIUM 4.1 mMol/L (3.7-5.1)
[2016-11-16] MEDS ORDERED: ZYLOPRIM300 MG PO (18:19)
[2016-11-17] MEDS ORDERED: LIPITOR80 MG PO (14:56)
== END 2016-11-17 15:35 | disposition disaster alternative care site (69) | DRG 66 ==
LOC: GMED 13:19 → GICU 15:46
PROVIDERS: Family Medicine; ADMIT Internal Medicine
DX: I63.9 Cerebral infarction, unspecified (principal); E11.9 Type 2 diabetes mellitus without complications; E66.01 Morbid (severe) obesity due to excess calories; I10 Essential (primary) hypertension; E78.5 Hyperlipidemia, unspecified; I25.10 Atherosclerotic heart disease of native coronary artery without angina pectoris; G47.33 Obstructive sleep apnea (adult) (pediatric); Z68.38 Body mass index [BMI] 38.0-38.9, adult
CPT/HCPCS: A9270; C8929; J7120; Q9967